=== PATIENT | male | born 1965 | race Two or more races ===

== ENCOUNTER 2022-10-13 10:24 | Emergency (ER) | payer OTHER ==
[~2022-10-13] VITALS: Ht 172.7 cm; Wt 107.5 kg
[2022-10-13] MEDS ORDERED: LANTUS SOL100 UNIT/1 SQ (10:33)
[2022-10-13] MEDS ORDERED: CARVEDILOL25 MG (10:34)
[2022-10-13] MEDS ORDERED: NORVASC2.5 M1 PO (10:34)
[2022-10-13] MEDS ORDERED: LISINOPRIL40 MG PO (10:34)
[2022-10-13] MEDS ORDERED: RUBRACA PO (10:34)
[2022-10-13] MEDS ORDERED: VAZALORE81 MG PO (10:34)
== END 2022-10-13 18:41 | disposition left against medical advice (07) ==
LOC: ER 10:24
DX: T85.611A Breakdown (mechanical) of intraperitoneal dialysis catheter, initial encounter (principal); E11.22 Type 2 diabetes mellitus with diabetic chronic kidney disease; N18.6 End stage renal disease; D63.1 Anemia in chronic kidney disease; I10 Essential (primary) hypertension; Z99.2 Dependence on renal dialysis; Z79.4 Long term (current) use of insulin; Z95.828 Presence of other vascular implants and grafts; Z20.822 Contact with and (suspected) exposure to COVID-19